=== PATIENT | male | born 1980 | race Caucasian/White ===

== ENCOUNTER 2025-04-14 21:37 | Inpatient (IN) | payer OTHER, SELFPAY ==
[2025-04-14 21:37] VITALS: BP 123/75; PULSE 75; RESP 14; TEMP 37.3; O2SAT 99; BMI 28.4
--- NOTE | 2025-04-14 22:17 | CT_ITS ---
EXAM: CT scan of the right upper extremity with and without contrast. CLINICAL HISTORY: Wound in the arm. COMPARISON: None. TECHNIQUE: Axial CT images before and after intravenous administration of contrast. Contrast: 100 cc of Isovue 370. DLP: 2410. CTDI: 29.46 FINDINGS: Diffuse soft tissue thickening and inflammatory edema of the distal aspect of the arm extending to the forearm, probably cellulitis. No fluid collection or drainable abscess formation is seen. No CT evidence of gas-forming infection or osteomyelitis. Multiple enlarged right axillary lymph nodes are noted with the largest measuring 1.4 cm, probably reactive. CT/Extremity Upper W/WO Contrast IMPRESSION: Findings are suggestive of cellulitis. No fluid collection or drainable abscess formation. Reading [facility] [address]
--- NOTE | 2025-04-14 22:31 | EDS_ITS ---
HPI History of Present Illness Chief Complaint: Rash Narrative Narrative: Chief complaint and HPI: Right upper extremity injury/infection and drug rash. 45-year-old male with no significant past medical history presents for evaluation of right upper extremity injury/infection and drug rash. Patient states approximately 3 weeks ago he had a puncture wound to his right forearm from a industrial hay rake. States he was seen at [facility]. Declined tetanus. Was given 1 dose of Zosyn and discharged home on Augmentin. Patient did not take the antibiotics for 2 weeks. He started developing a wound so he started his 10-day course of antibiotics. Finished last dose on Friday. Over the past 2 days has developed a red pruritic rash on his body. Followed up with Anamaria Ortiz he works at [employer] [facility]. Concern for drug rash as well as right upper extremity infection. Sent to the emergency department. Patient denies any fever, chills, shortness of breath, chest pain, nausea, vomiting. Endorses minimal pain in the right forearm. Endorses increased swell ing, warmth, erythema to the right upper extremity. Review of systems: See HPI Medications: As listed on the chart Allergies: As listed on the chart PFSH: Per chart Vital signs: As listed on the chart. Reviewed. Physical exam: Gen: A&O x3, NAD Head: Normocephalic, atraumatic Eyes: No sclera icterus, conjunctiva clear ENT: Moist mucous membranes Neck: Trachea midline CV: RRR, no murmurs Resp: Lungs CTA BL, no w/r/c Musc: Full ROM, no deformity, right upper extremity is swollen from the mid humerus to the fingers compared to the left, arm is erythematous/warm, mildly tender to palpation, he has a wound that is around the previous puncture sites, radial pulse +2, good capillary refill, sensation intact Skin: Warm, erythematous rash diffusely on the body including the bilateral arms, chest, back, neck, ears-consistent with likely drug rash Neuro: Alert, oriented, grossly intact, sensation intact Psych: Cooperative, appropriate mood and affect [facility] Medical History Iron deficiency anemia Normal cardiac stress test Home Medications ?Medication ?Instructions ?Recorded ?Last Taken ?Type NK 04/14/25 Unknown History Allergy/AdvReac Type Severity Reaction Status Date / Time amoxicillin (From Augmentin) Allergy Severe rash and Verified 04/14/25 21:38 hives clavulanic acid (From Allergy Severe rash and Verified 04/14/25 21:38 Augmentin) hives Family History (Updated 04/15/25 @ 02:[address] Kimberly Cruz MD) Grandfather Heart disease Grandmother Heart disease Mother Diabetes Father Chronic hypotension Surgical History No history of previous surgery Social History (Updated 04/15/25 @ 02:[address] Kimberly Cruz MD) household members: spouse Smoking Status: Never smoker alcohol intake: never substance use type: does not use EXAM Physical Exam Const Vital Signs: 04/14/25 21:37 04/14/25 22:47 04/14/25 22:50 Temperature 99.2 F H 98.5 F Temperature Source Temporal Oral Pulse Rate 75 63 69 Respiratory Rate 14 13 14 Blood Pressure 123/75 H 111/80 Blood Pressure Mean 91 90 Pulse Ox 99 97 98 Oxygen Delivery Method Room Air Room Air Room Air 04/14/25 23:00 04/15/25 00:00 04/15/25 00:00 Temperature 98.2 F 98.2 F Temperature Source Oral Oral Pulse Rate 67 67 70 Respiratory Rate 14 12 14 Blood Pressure 116/73 116/73 116/71 Blood Pressure Mean 87 87 86 Pulse Ox 99 99 100 Oxygen Delivery Method Room Air Room Air 04/15/25 01:00 Temperature 98 F Temperature Source Oral Pulse Rate 70 Respiratory Rate 14 Blood Pressure 132/77 H Blood Pressure Mean 95 Pulse Ox 99 Oxygen Delivery Method Room Air MDM MDM MDM Narrative Medical decision making narrative: 45-year-old male with no significant past medical history presents for evaluation of right upper extremity injury/infection and drug rash. Patient states approximately 3 weeks ago he had a puncture wound to his right forearm from a industrial hay rake. States he was seen at [facility]. Declined tetanus. Was given 1 dose of Zosyn and discharged home on Augmentin. Patient did not take the antibiotics for 2 weeks. He started developing a wound so he started his 10-day course of antibiotics. Finished last dose on Friday. Over the past 2 days has developed a red pruritic rash on his body as well as increased pain, swelling, erythema to the right upper extremity followed up with Anamaria Ortiz he works at [employer] [facility] [employer] [facility]. Concern for drug rash as well as right upper extremity infection. See physical exam findings. Differential diagnosis includes but is not limited to drug rash, cellulitis, upper extremity abscess, DVT, osteomyelitis. NS bolus and Tylenol ordered. Infectious workup ordered including CT of the right upper extremity. I do not have ultrasound available to assess for DVT. CBC without leukocytosis or anemia. Platelets unremarkable. BMP unremarkable. ESR unremarkable. CRP elevated at 9.79. CT of the upper extremity shows findings suggestive of cellulitis. No fluid collection or drainable abscess. No gas-forming infection or osteomyelitis. Patient does have multiple enlarged right axillary lymph nodes. Patient will warrant admission for IV antibiotics given his failed outpatient right upper extremity cellulitis. Given his drug rash to Augmentin, vancomycin and ciprofloxacin ordered. Patient was discussed with the hospitalist. Accepted admission. Patient family updated all results and the plan. Impression: 1. Right upper extremity cellulitis 2. History of puncture wound to the right forearm 3 weeks ago with [employer] Lab Data Labs: Laboratory Results - last 24 hr 04/14/25 04/14/25 00:00 22:45 WBC 9.2 RBC 4.71 Hgb 14.6 Hct 40.8 MCV 86.6 MCH 31.0 MCHC 35.8 RDW Std Deviation 40.1 RDW Coeff of [place] 13.1 Plt Count 289 MPV 10.1 Immature Gran % (Auto) 0.200 Neut % (Auto) 62.9 Lymph % (Auto) 24.5 [place] % (Auto) 7.1 Eos % (Auto) 5.2 H Baso % (Auto) 0.1 Absolute Neuts (auto) 5.8 Absolute Lymphs (auto) 2.25 Nucleated RBC % 0 ESR 4 Sodium 138 Cancelled Potassium 4.0 Cancelled Chloride 106 Cancelled Carbon Dioxide 22.8 Cancelled Anion Gap 9 Cancelled BUN 15 Cancelled Creatinine 1.06 Cancelled Estim Creat Clear Calc 111.38 Cancelled Est GFR (MDRD) Non-Af 88 Cancelled BUN/Creatinine Ratio 13.8 Cancelled Glucose 114 H Cancelled Calcium 8.4 Cancelled C-React Prot Ext Range 9.79 H Cancelled Radiography Diagnostic Testing: Clinical Impression(s) from Imaging Studies Upper Extremity CT 04/14/25 22:17 IMPRESSION: Findings are suggestive of cellulitis. No fluid collection or drainable abscess formation. Reading Location: [facility] Discharge Plan Disposition Disposition: Acute Care Hospital [facility] Discharge Date/Time: 04/15/25 02:25
[2025-04-14 22:47] VITALS: BP 111/80; PULSE 63; RESP 13; TEMP 36.9; O2SAT 97
[2025-04-14] MEDS: 0.9% Normal Saline (1000mL) 1,000 ML 1000 ML IV (22:47)
[2025-04-14 22:50] VITALS: PULSE 69; RESP 14; O2SAT 98
[2025-04-14 23:00] VITALS: BP 116/73; PULSE 67; RESP 14; TEMP 36.8; O2SAT 99
[2025-04-14 23:07] LABS: Absolute Lymphocyte Count 2.25 X10^3/uL (0.83-4.51); Absolute Neutrophil Count 5.8 X10^3/uL (2.0-7.7); Basophil# 0.01 X10^3/uL; Basophil% 0.1 % (0-1); Eosinophil# 0.48 X10^3/uL; Eosinophils% 5.2 % (0-5); Hematocrit 40.8 % (40-54); Hemoglobin 14.6 g/dL (13.0-16.5); Lymphocyte # 2.25 X10^3/ul (0.83-4.51); Lymphocyte % 24.5 % (19-41); Mean Corp Hgb Conc 35.8 g/dL (32-36); Mean Corpuscular Volume 86.6 fL (80-94); Mean Platelet Vol. 10.1 fl (6.2-12.0); Monocyte# 0.65 X10^3/uL; Monocyte% 7.1 % (0-10); NRBC Flagged by Analyzer 0 % (0-5); Neutrophil # 5.76 X10^3/uL (2.7-7.7); Neutrophil % 62.9 % (47-70); Platelet Count 289 K/mm3 (150-450); RBC Distribution Width CV 13.1 % (11.6-14.6); RBC Distribution Width SD 40.1 fl (35.1-43.9); Red Blood Count 4.71 M/mm3 (4.6-6.2); White Blood Count 9.2 K/mm3 (4.4-11.0)
[2025-04-14 23:18] LABS: Erythrocyte Sedimentation Rate 4 mm/hr (0-20)
[2025-04-15] VITALS (7 sets, daily range): BP systolic 116–132; BP diastolic 66–77; PULSE 66–75; RESP 12–18; TEMP 36.6–37.1; O2SAT 97–100; BMI 28.0
[2025-04-15 00:57] LABS: Anion Gap 9 (5-15); BUN 15 mg/dL (4-19); BUN/Creat Ratio 13.8 RATIO (10-20); CRP 9.79 mg/L (0.0-3.0); Calcium,Total 8.4 mg/dL (7.6-11.0); Carbon Dioxide 22.8 mmol/L (21.0-32.0); Chloride 106 mmol/L (98-108); Creatinine, Serum 1.06 mg/dL (0.70-1.20); EST Glomerular Filtration Rate 88 (>60); Estimated Creatinine Clearance 111.38 ml/min (50-250); Glucose 114 mg/dL (70-99); Sodium Level 138 mmol/L (133-145)
[2025-04-15] MEDS: Ciprofloxacin 400 MG/200 ML BAG 200 MG IV (01:05)
--- NOTE | 2025-04-15 01:12 | HP.PCM.HOS_ITS ---
HPI - General General Date of Admission: 04/15/25 Date of Service: 04/15/25 Chief Complaint: RUE pain, s/p recent trauma w/ infection, redness, edema, recent Augmentin drug reaction. HPI Narrative The patient is a 45 y/o M w/ PMHx: Fe deficiency anemia history not routinely taking Fe supplementation otherwise healthy who presents to the [facility] ED on 04/15/25 with history of trauma to the right arm from a metal piece of farm equipment approximately 3 weeks prior with immediate evaluation in the emergency room with IV Zosyn antibiotic therapy at that time, highly suggested tetanus shot however patient and spouse declined vaccination in addition to prescription at discharge with Augmentin with high concern for infectious risk but they had deferred taking the antibiotic at that time given he had been administered IV antibiotics in the ED however approximately 2 weeks later he had significant periwound erythema and swelling prompting him to start the Augmentin which he took 10 days worth of and starting 2 days previous to completion of this he had onset of significant hives and swelling to bilateral upper extremity, neck, face and behind the neck with pruritus associated however he also notes over the last 24 hours he had increased swelling to the right upper extremity focally with periwound erythema worsening and discomfort/aching to the right upper extremity rating it 2-4 out of 10 in severity at its worst prompting eventual ED evaluation. He does report significant itching with the rash/hives. He denies any other recent exposures to this region. He denies any other new medications aside from the Augmentin antibiotic therapy. Workup in the ED included T98.5, heart rate 63, BP 111/80, respiratory rate 13, 97% on room air with most recent repeat evaluation T98.2, heart rate 70, BP 116/71, respiratory rate 14, 100% on room air, CBC with WC 9.2, P1 14.6, platelet 289 without marked shift, ESR 4, BMP with BUN/creatinine 15/1.06, GFR 88, glucose 114, CRP 9.97, right upper extremity CT with findings suggestive of cellulitis with diffuse soft tissue thickening and inflammatory edema of the distal aspect of the arm extending to the forearm with no fluid collection or abscess formation evident. In the ED patient ministered 1 L normal saline, Tylenol 1000 mg p.o. x 1, ciprofloxacin 400 mg IV x 1, vancomycin 2000 mg IV x 1. [facility] Medical History Iron deficiency anemia Normal cardiac stress test Home Medications ?Medication ?Instructions ?Recorded ?Last Taken ?Type NK 04/14/25 Unknown History Allergy/AdvReac Type Severity Reaction Status Date / Time amoxicillin (From Augmentin) Allergy Severe rash and Verified 04/14/25 21:38 hives clavulanic acid (From Allergy Severe rash and Verified 04/14/25 21:38 Augmentin) hives Family History (Updated 04/15/25 @ 02:[address] Kimberly Cruz MD) Grandfather Heart disease Grandmother Heart disease Mother Diabetes Father Chronic hypotension Surgical History No history of previous surgery Social History (Updated 04/15/25 @ 02:[address] Kimberly Cruz MD) household members: spouse Smoking Status: Never smoker alcohol intake: never substance use type: does not use ROS ROS Narrative Admission Review of Systems: CONSTITUTIONAL: No weight loss, fever, chills, + weakness or fatigue. HEENT: Eyes: No visual loss, blurred vision, double vision or yellow sclerae. Ears, Nose, Throat: No hearing loss, sneezing, congestion, runny nose or sore throat. SKIN: + Significant bilateral upper extremity, upper throat/facial/posterior neck and upper back hives and erythematous rash following recent antibiotic therapy in addition to right upper extremity forearm recent wounds with metal farm equipment with periwound erythema, edema to the right upper extremity and tenderness to palpation. CARDIOVASCULAR: No chest pain, chest pressure or chest discomfort, palpitations, edema, orthopnea, syncopal events. RESPIRATORY: No shortness of breath, cough or sputum, wheezing, hemoptysis. GASTROINTESTINAL: + Recent mildly decreased appetite. No nausea, vomiting or diarrhea, abdominal pain, melena, BRBPR. GENITOURINARY: No dysuria, frequency, urgency or retention. NEUROLOGICAL: No headache, dizziness, syncope, paralysis, ataxia, numbness or tingling in the extremities, focal weakness, change in bowel or bladder control, seizure. MUSCULOSKELETAL: + muscle, back pain, joint pain or stiffness. HEMATOLOGIC: History of chronic iron deficiency anemia. No marked easy history of+ bleeding or bruising. LYMPHATICS: No enlarged nodes. No history of splenectomy. PSYCHIATRIC: No history of depression or anxiety. ENDOCRINOLOGIC: No reports of sweating, cold or heat intolerance. No polyuria or polydipsia. ALLERGIES: + Recent onset as noted of erythema/rash and hives with Augmentin antibiotic therapy. Vital Signs Vital Signs Vital Signs: 04/14/25 21:37 04/14/25 22:47 04/14/25 22:50 Temperature 99.2 F H 98.5 F Temperature Source Temporal Oral Pulse Rate 75 63 69 Respiratory Rate 14 13 14 Blood Pressure 123/75 H 111/80 Blood Pressure Mean 91 90 Pulse Ox 99 97 98 Oxygen Delivery Method Room Air Room Air Room Air 04/14/25 23:00 04/15/25 00:00 04/15/25 00:00 Temperature 98.2 F 98.2 F Temperature Source Oral Oral Pulse Rate 67 67 70 Respiratory Rate 14 12 14 Blood Pressure 116/73 116/73 116/71 Blood Pressure Mean 87 87 86 Pulse Ox 99 99 100 Oxygen Delivery Method Room Air Room Air 04/15/25 01:00 Temperature 98 F Temperature Source Oral Pulse Rate 70 Respiratory Rate 14 Blood Pressure 132/77 H Blood Pressure Mean 95 Pulse Ox 99 Oxygen Delivery Method Room Air Weight Weight: 221 lb 5.506 oz Body Mass Index (BMI) 28.4 Physical Exam Narrative Physical Examination: General: Awake, alert, oriented x 3 and cooperative, seated upright in the ED bed, notes very mild discomfort to the right upper extremity but does report significant itching with the hives/rash. Skin: Normal color, normal turgor, no icterus, no cyanosis except for significant upper extremity, throat, face, posterior neck and upper back hives as well as erythematous rash, right upper extremity forearm status post recent trauma with metal forearm equipment with periwound erythema, increased swelling to the right upper extremity, indurated region with no focal ballotable area. HEENT: AT/NC, EOMI, PERRLA, moderately dry MM, no carotid bruits or JVD noted. Lungs: Mildly diminished, greater bases, proper effort, no rales, ronchi or wheezing. Heart: Regular rate and rhythm; no gallop, rub audible. Abdomen: Soft, overweight, NTTP, ND, mildly hyperactive BS, no HSM. Extremities: No cyanosis, no clubbing, see skin. Neurological: Patient awake, alert, oriented as noted, cognitive function intact; pupils equally reactive to light and accommodation, cranial nerves grossly normal, moving all 4 extremities although somewhat limited right upper extremity movement given discomfort and acute presentation with infection to the right upper extremity, no focal deficits, strength moderately globally decreased. Psychiatric: Affect appears fatigued otherwise normal, no acute evidence of depressive or anxiety feelings. Results Lab / Micro Data 04/14/25 22:45 04/14/25 00:00 Labs: Laboratory Results - last 24 hr 04/14/25 00:00: Sodium 138, Potassium 4.0, Chloride 106, Carbon Dioxide 22.8, Anion Gap 9, BUN 15, Creatinine 1.06, Estim Creat Clear Calc 111.38, Est GFR (MDRD) Non-Af 88, BUN/Creatinine Ratio 13.8, Glucose 114 H, Calcium 8.4, C-React Prot Ext Range 9.79 H 04/14/25 22:45: WBC 9.2, RBC 4.71, Hgb 14.6, Hct 40.8, MCV 86.6, MCH 31.0, MCHC 35.8, RDW Std Deviation 40.1, RDW Coeff of [place] 13.1, Plt Count 289, MPV 10.1, Immature Gran % (Auto) 0.200, Neut % (Auto) 62.9, Lymph % (Auto) 24.5, [place] % (Auto) 7.1, Eos % (Auto) 5.2 H, Baso % (Auto) 0.1, Absolute Neuts (auto) 5.8, Absolute Lymphs (auto) 2.25, Nucleated RBC % 0, ESR 4, Sodium Cancelled, Potassium Cancelled, Chloride Cancelled, Carbon Dioxide Cancelled, Anion Gap Cancelled, BUN Cancelled, Creatinine Cancelled, Estim Creat Clear Calc Cancelled, Est GFR (MDRD) Non-Af Cancelled, BUN/Creatinine Ratio Cancelled, Glucose Cancelled, Calcium Cancelled, C-React Prot Ext Range Cancelled Imaging Radiology Impression Upper Extremity CT 04/14/25 22:17 IMPRESSION: Findings are suggestive of cellulitis. No fluid collection or drainable abscess formation. Reading [facility] Assessment & Plan Assessment/Plan (1) Infected wound: PLAN: Plan The patient is a 45 y/o M w/ PMHx: Fe deficiency anemia history not routinely taking Fe supplementation otherwise healthy who presents to the [facility] ED on 04/15/25 with history of trauma to the right arm from a metal piece of farm equipment approximately 3 weeks prior with immediate evaluation in the emergency room with IV Zosyn antibiotic therapy at that time, highly suggested tetanus shot however patient and spouse declined vaccination in addition to prescription at discharge with Augmentin with high concern for infectious risk but they had deferred taking the antibiotic at that time given he had been administered IV antibiotics in the ED however approximately 2 weeks later he had significant periwound erythema and swelling prompting him to start the Augmentin which he took 10 days worth of and starting 2 days previous to completion of this he had onset of significant hives and swelling to bilateral upper extremity, neck, face and behind the neck with pruritus associated however he also notes over the last 24 hours he had increased swelling to the right upper extremity focally with periwound erythema worsening and discomfort/aching. #1. Right upper extremity cellulitis (failed outpatient abx therapy) status post trauma with farm equipment with periwound increasing erythema, right upper extremity swelling and discomfort with concurrent antibiotic allergic reaction as noted #2: Will admit to medical surgical floor, maintain on IV vancomycin and Levaquin given recent allergic reaction to Augmentin, currently there is no discharge from the wound itself and CT with no obvious abscess but will continue closely monitor, plan repeat CBC in AM, continue affected extremity elevation above heart when seated and in bed, monitor erythema outline with VS checks, right upper extremity duplex ultrasound requested and in the interim until obtained will place on therapeutic Lovenox. Will have as needed pain regimen/antiemetic regimen. #2. Antibiotic allergic reaction: Discussed with patient and spouse at length and given infectious presentation currently will defer any usage of steroids at this time, Augmentin is now listed as an allergy, will have hydroxyzine for itching per discussion with patient and spouse. #3. Questionable Chronic Kidney Disease Stage II per GFR trending versus renal insufficiency: Admission BUN/Cr 15/1.06, GFR 88,, baseline renal function unknown, repeat BMP in AM to further elucidate chronicity. #4. Patient reported history of chronic iron deficiency anemia: Admission CBC with hemoglobin 14.6, MCV 86.6, notes he only takes iron supplementation [id number] when he is feeling fatigued and it is unclear if this was ever a formal diagnosis, will continue to trend CBC. #5. DVT prophylaxis: Will place on therapeutic Lovenox pending right upper extremity duplex ultrasound and if it is negative de-escalate to chemoprophylactic dosing only. Charges/Coding Visit Charges Inpatient E&M: 58543 Subs Hosp L3
--- NOTE | 2025-04-15 01:16 | VDUE_ITS ---
Reason For Study Reason For Study: RUE PAIN Right Proximal Left Proximal Right jugular vein is spontaneous, widely patent, Left subclavian vein is spontaneous, widely patent, phasic, with no intraluminal echogenicity noted. phasic, with no intraluminal echogenicity noted. Right subclavian vein is spontaneous, widely patent, phasic, with no intraluminal echogenicity noted. Right Lower Arm Right radial vein is compressible. Right ulnar vein is compressible. Right Arm Right axillary vein is spontaneous, patent, phasic, competent, compressible and demonstrates augmentation. Right brachial vein is compressible. Right cephalic vein is compressible. Right basilic vein is compressible. Patient Safety PRELIMINARY sent to [facility]. VL/Venous Duplex US, Unilateral Interpretation Summary Deep veins of the right upper extremity are patent and compressible segmentally . There is no evidence of deep vein thrombosis. The superficial veins of the right upper extremity, the basilic and cephalic veins, are patent and compressible. There is no evidence of right upper extremity superficial thrombo phlebitis involving the veins imaged. The left subclavian vein is patent. Ordering Physician: Kimberly Cruz Referring Physician: Anamaria Ortiz Performed By: Cori Wilkes, DORIE, RVT ???
[2025-04-15] MEDS: Vancomycin HCl 2,000 MG in 0.9% Normal Saline (500mL Bag) 500 ML 250 MG IV (03:16)
[2025-04-15] MEDS: 0.9% Normal Saline (1000mL) 1,000 ML 100 ML IV (03:29)
[2025-04-15] MEDS: Enoxaparin 100 MG/ML Syringe SC ×2 (03:49→09:12)
--- NOTE | 2025-04-15 03:52 | PCM.RX.CS ---
Consult Antibiotic Management Pharmacy has been consulted to manage selected antibiotic: Vancomycin Type of Intervention Type of Consult: New start Labs Labs: Sodium Cancelled 04/14/25 22:45 Potassium Cancelled 04/14/25 22:45 Chloride Cancelled 04/14/25 22:45 Carbon Dioxide Cancelled 04/14/25 22:45 Anion Gap Cancelled 04/14/25 22:45 BUN Cancelled 04/14/25 22:45 Creatinine Cancelled 04/14/25 22:45 Est GFR (MDRD) Non-Af Cancelled 04/14/25 22:45 BUN/Creatinine Ratio Cancelled 04/14/25 22:45 Glucose Cancelled 04/14/25 22:45 Dosing Weight Weight used for dosin kg Estimated Creatinine Clearance Estimated Creatinine Clearance: 110 Goal Trough Goal Trough: 15-20 mcg/mL Pharmacy Plan for Drug Dosing Pharmacy Plan for Drug Dosing: Pharmacy Service will continue to monitor and adjust dosing as required. ER DOSE 2GM 04/15 @ 0316. START 1250MG Q8H AND DRAW TROUGH PRIOR TO 4TH DOSE Follow-Up Labs Follow-Up Labs: Trough: Vancomycin Date/Time Labs Ordered Labs to be done on [date and time ordered]: 04/16 @ 0300
--- NOTE | 2025-04-15 08:39 | PCM.PN.HOSP ---
Reason for Visit Reason for Visit: Diagnoses Local infection of the skin and subcutaneous tissue, unspecified (04/15/25) Other injury of unspecified body region, initial encounter (04/15/25) Subjective Subjective Feels the diffuse rash that he has is overall proving. Still with edema of his right upper extremity. About 3 weeks ago he had the tong of a pitchfork go straight through his arm puncture to the other side. Fortunately missed all major vessels and nerves. States that he went back to work and was doing well. Had been on Augmentin for cellulitis which she had completed and then the next day developed a diffuse rash. Objective Data Objective Data Vital Signs: Vital Signs Temp Pulse Resp BP Pulse Ox O2 Del Method 36.7 C 75 15 123/66 H 97 Room Air 04/15/25 08:23 04/15/25 08:23 04/15/25 08:23 04/15/25 08:23 04/15/25 08:23 04/15/25 08:25 Oxygen Delivery Method Room Air Weight: 99.1 kg Body Mass Index (BMI) 28.0 Intake & Output: Intake and Output for Last 24 Hours 04/13/25 04/14/25 04/15/25 23:59 23:59 23:59 Intake Total 1450 / 1450 Balance 1450 / 1450 Lab / Micro Data 04/15/25 10:20 04/15/25 10:20 Labs: Laboratory Results - last 24 hr 04/14/25 00:00: Sodium 138, Potassium 4.0, Chloride 106, Carbon Dioxide 22.8, Anion Gap 9, BUN 15, Creatinine 1.06, Estim Creat Clear Calc 111.38, Est GFR (MDRD) Non-Af 88, BUN/Creatinine Ratio 13.8, Glucose 114 H, Calcium 8.4, C-React Prot Ext Range 9.79 H 04/14/25 22:45: WBC 9.2, RBC 4.71, Hgb 14.6, Hct 40.8, MCV 86.6, MCH 31.0, MCHC 35.8, RDW Std Deviation 40.1, RDW Coeff of [place] 13.1, Plt Count 289, MPV 10.1, Immature Gran % (Auto) 0.200, Neut % (Auto) 62.9, Lymph % (Auto) 24.5, [place] % (Auto) 7.1, Eos % (Auto) 5.2 H, Baso % (Auto) 0.1, Absolute Neuts (auto) 5.8, Absolute Lymphs (auto) 2.25, Nucleated RBC % 0, ESR 4, Sodium Cancelled, Potassium Cancelled, Chloride Cancelled, Carbon Dioxide Cancelled, Anion Gap Cancelled, BUN Cancelled, Creatinine Cancelled, Estim Creat Clear Calc Cancelled, Est GFR (MDRD) Non-Af Cancelled, BUN/Creatinine Ratio Cancelled, Glucose Cancelled, Calcium Cancelled, C-React Prot Ext Range Cancelled Radiography Diagnostic Testing: Radiology Impression Upper Extremity CT 04/14/25 22:17 IMPRESSION: Findings are suggestive of cellulitis. No fluid collection or drainable abscess formation. Reading Location: [place] [id number] Physical Exam Const alert and no apparent distress HEENT head/scalp atraumatic and moist oral mucous membranes Skin Skin Narrative: Diffuse maculopapular rash on upper extremities and torso. Does have a lesion on his right anterior arm that has been scabbed over. Noted edema in right upper extremity. Neuro moves all extremities Sensorium / Orientation: awake and alert Psych affect normal Assessment & Plan Assessment/Plan (1) Infected wound: PLAN: Right upper extremity cellulitis. Cannot rule out severe rhus dermatitis. But with the patient's severe injury that he has sustained 3 weeks ago where the tongue of the pitchfork went directly through his arm from 1 end to the other I would continue to treat him as though he does have an infectious dermatitis. Additionally I would avoid steroids at this point in time because of the concern for infection and the fact that his drug rash is overall improving. His spouse was present and expressed reservations about the Levaquin. Will try to reassure her that Levaquin is used frequently and that he would be monitored but they would wish to avoid that for now. Given his obvious allergy to penicillins which are clearly severe I would avoid that moving forward and I will have him on aztreonam and vancomycin. I did discuss with him about gram-positive organisms which vancomycin would cover and strongly encouraged its use which they are both in agreement to now. (2) Drug rash: PLAN: Patient was taking Augmentin and when this rash happened. I doubt it is related with the clavulanic acid but more from the amoxicillin. Penicillin would be an allergy and he is instructed to avoid all penicillins moving forward. Though I am concerned because I did see some pictures that he had a wound on his anterior arm and had some just serous seepage which looked from the picture to be Rhus dermatitis. And it is possible that having there is dermatitis as well as a drug rash may have made his overall reaction worse. But once again avoiding steroids right now because of the concern for infection and overall appears to be improved. PLAN: Plan VTE prophylaxis with enoxaparin. Disposition: Monitor the patient overnight. If he is improving, hopefully he could be discharged in next day or 2. Charges/Coding Visit Charges Inpatient E&M: 90590 Subs Hosp L2
[2025-04-15] MEDS: levoFLOXacin IV 750 MG/150 ML BAG 100 MG IV (09:08)
--- NOTE | 2025-04-15 09:57 | WOUNDNOTE ---
wound photo: right arm
--- NOTE | 2025-04-15 09:58 | WOUNDNOTE ---
wound photo: right arm
[2025-04-15 10:34] LABS: Absolute Lymphocyte Count 1.64 X10^3/uL (0.83-4.51); Absolute Neutrophil Count 7.5 X10^3/uL (2.0-7.7); Basophil# 0.02 X10^3/uL; Basophil% 0.2 % (0-1); Eosinophil# 0.46 X10^3/uL; Eosinophils% 4.5 % (0-5); Hematocrit 41.7 % (40-54); Hemoglobin 14.4 g/dL (13.0-16.5); Lymphocyte # 1.64 X10^3/ul (0.83-4.51); Lymphocyte % 16.1 % (19-41); Mean Corp Hgb Conc 34.5 g/dL (32-36); Mean Corpuscular Hgb 30.4 pg (27.0-32.0); Mean Corpuscular Volume 88.2 fL (80-94); Mean Platelet Vol. 9.3 fl (6.2-12.0); Monocyte% 4.9 % (0-10); NRBC Flagged by Analyzer 0 % (0-5); Neutrophil # 7.52 X10^3/uL (2.7-7.7); Neutrophil % 74.1 % (47-70); Platelet Count 219 K/mm3 (150-450); RBC Distribution Width CV 12.4 % (11.6-14.6); RBC Distribution Width SD 40.4 fl (35.1-43.9); Red Blood Count 4.73 M/mm3 (4.6-6.2); White Blood Count 10.2 K/mm3 (4.4-11.0)
[2025-04-15 11:42] LABS: ALB/GLOB Ratio 1.3 RATIO (0.9-2.4); AST(SGOT) 53 U/L (<=37); Alanine Aminotransfer ALT/SGPT 112 U/L (<=46); Albumin, Serum 3.7 g/dL (3.5-5.0); Alkaline Phosphatase 54 U/L (40-129); Anion Gap 11 (5-15); BUN 11 mg/dL (4-19); BUN/Creat Ratio 11.7 RATIO (10-20); Calcium,Total 8.8 mg/dL (7.6-11.0); Carbon Dioxide 22.3 mmol/L (21.0-32.0); Chloride 106 mmol/L (98-108); Creatinine, Serum 0.93 mg/dL (0.70-1.20); EST Glomerular Filtration Rate 103 (>60); Estimated Creatinine Clearance 126.21 ml/min (50-250); Globulin 2.7 g/dL (2.2-4.2); Glucose 130 mg/dL (70-99); Protein, Total 6.4 g/dL (5.9-8.4); Sodium Level 139 mmol/L (133-145); Total Bilirubin 0.38 mg/dL (0.00-1.30)
[2025-04-15] MEDS: Vancomycin HCl 1,250 MG in 0.9% Normal Saline (250mL Bag) 250 ML 167 MG IV ×2 (11:56→19:20)
[2025-04-15] MEDS: Aztreonam 1 GM 1 GM in 0.9% Normal Saline (50mL MB+) 50 ML IV ×2 (14:10→23:25)
--- NOTE | 2025-04-15 16:16 | CASEMGMT ---
BRENT DNA Chart Review: DX:KERLINE Cellulitis Lace: 1 6 Click: 24 Medical record reviewed and patient evaluated for identification of discharge planning needs. Based on this review, patient does not currently demonstrate a need for discharge planning. CM remains available to assist with discharge planning needs as identified or requested.?
[2025-04-16 03:46] VITALS: BMI 28.0
[2025-04-16 04:27] LABS: Vancomycin, Trough Level 13.2 ug/mL (5.0-15.0)
[2025-04-16] MEDS: Aztreonam 1 GM 1 GM in 0.9% Normal Saline (50mL MB+) 50 ML IV ×2 (05:12→15:34)
[2025-04-16 05:50] VITALS: BP 100/58; PULSE 66; RESP 16; TEMP 36.1; O2SAT 97
--- NOTE | 2025-04-16 06:20 | PCM.RX.CS ---
Consult Antibiotic Management Pharmacy has been consulted to manage selected antibiotic: Vancomycin Type of Intervention Type of Consult: Follow-up Labs Labs: Sodium 139 mmol/L (133-145) 04/15/25 10:20 Potassium 4.0 mmol/L (3.3-5.1) 04/15/25 10:20 Chloride 106 mmol/L (98-108) 04/15/25 10:20 Carbon Dioxide 22.3 mmol/L (21.0-32.0) 04/15/25 10:20 Anion Gap 11 (5-15) 04/15/25 10:20 BUN 11 mg/dL (4-19) 04/15/25 10:20 Creatinine 0.93 mg/dL (0.70-1.20) 04/15/25 10:20 Est GFR (MDRD) Non-Af 103 (>60) 04/15/25 10:20 BUN/Creatinine Ratio 11.7 RATIO (10-20) 04/15/25 10:20 Glucose 130 mg/dL (70-99) H 04/15/25 10:20 Vancomycin Trough 13.2 ug/mL (5.0-15.0) 04/16/25 03:29 Goal Trough Goal Trough: 15-20 mcg/mL Pharmacy Plan for Drug Dosing Pharmacy Plan for Drug Dosing: Pharmacy Service will continue to monitor and adjust dosing as required. TROUGH 13.2 @ 8 HOURS. INCREASE TO 1500MG Q8H AND FOLLOW UP TROUGH PRIOR TO 4TH DOSE Follow-Up Labs Follow-Up Labs: Trough: Vancomycin Date/Time Labs Ordered Labs to be done on [date and time ordered]: 04/17 @ 0400
[2025-04-16] MEDS: Vancomycin HCl 1,500 MG in 0.9% Normal Saline (500mL Bag) 500 ML 250 MG IV ×2 (06:24→11:57)
[2025-04-16 07:01] VITALS: O2SAT 93
[2025-04-16 11:04] VITALS: BP 114/74; PULSE 70; RESP 14; TEMP 36.6; O2SAT 98
[2025-04-16] MEDS: 0.9% Saline Lock 10 ML Syringe IV (11:58)
--- NOTE | 2025-04-16 13:30 | DS.PCM_ITS ---
Providers Date of Admission: 04/15/25 Date of Discharge: 04/16/25 Primary Care Physician: Anamaria Ortiz Consultations 04/15/25 07:15 Consult: Onc/Wound/primary health organisation manager Routine Comment: Reason for Consult:: R arm wound Reason For Visit: RUE CELLULITIS, ALLERGIC RXN Diagnosis Discharge Diagnosis (1) Infected wound: Status: Acute Code(s): T14.8XXA - Other injury of unspecified body region, initial encounter; L08.9 - Local infection of the skin and subcutaneous tissue, unspecified (2) Drug rash: Status: Acute Code(s): L27.0 - Generalized skin eruption due to drugs and medicaments taken internally Medications at Discharge Home Medications cefdinir 300 mg capsule 300 mg PO Q12H #20 caps 04/16/25 doxycycline hyclate 100 mg capsule 100 mg PO BID #20 caps 04/16/25 oxycodone 5 mg tablet 5 mg PO Q8H PRN pain 4 days #12 tabs 04/16/25 Hospital Course Operations None Procedures - (Right upper extremity CT/venous Doppler ) Summary of Care Provided Minutes Spent on Discharge: 37 Hospital Course: Mr. Augustin is a 45-year-old white male who presented to the emergency department at [facility] on 04/14/2025 late in the evening due to right upper extremity redness with recent trauma and drug reaction. About 3 weeks prior to presentation he had a industrial hay rake puncture his right upper extremity. He was seen at [facility] and declined tetanus shot at that time but was given 1 dose of Zosyn and discharged with Augmentin. He did not take the antibiotics for 2 weeks but then started developing drainage around the wound and started his 10-day antibiotic course. The dose was finished on Friday prior to presentation but developed a pruritic rash all over his body. He followed up with his primary care physician at the [place] [facility] and she was concern for drug rash as well as a right upper extremity infection and sent the patient to the emergency department. On presentation he had no fever or chills but did complain of some mild right arm pain and swelling. He also felt that the arm was hot in nature. On evaluation he had erythema that extended up to his mid brachial area as well as swelling to this area as well. He also has a diffuse drug rash it seems to be in various stages of healing. The drug rash does make his right upper extremity erythema complicated. He had developed an area of a superficial wound on the dorsum of his right forearm and a small area on the volar surface of his right forearm both of which are not having any significant drainage. Vital signs on presentation showed a temperature of 99.2, heart rate 75, respiratory was 14, blood pressure was 123/75 pulse ox was 99% on room air. CBC was overtly unremarkable without a left shift. Sed rate was normal. Chemistry was unremarkable. CRP was 9.79. Her right upper extremity CT was consistent with cellulitis but no fluid collection or drainable abscesses were noted. Given his symptoms he was admitted to hospital and placed on IV antibiotics. Initially with Levaquin and vancomycin. Family declined Levaquin as they were concerned about the black box warning and he was transitioned to aztreonam and vancomycin. His rash is slowly improving. The area of erythema and swelling both seem to be improving. At this time, I did discuss pseudomonal coverage at the time of discharge as quinolones are really her only option for outpatient oral Pseudomonas coverage and given the fact we do not know exactly what microbes are treating as no wound culture has been able to be obtained. They preferred to be continue antibiotic coverage without pseudomonal coverage and will monitor closely for any signs of recurrence given their concern with fluoroquinolone use. At this time I have chosen doxycycline to cover MRSA and Omnicef for the rest of coverage. I have recommended he have close f/u with his PCP and be seen next week early to mid week. Discharge Diagnoses: R UE Cellulitis Drug Rash Augmentin allergy Transaminitis Eosinophilia-resolved Physical Exam Const alert, oriented x3, no apparent distress, average body habitus, no limitations, healthy appearing and well nourished Constitutional Narrative: Very pleasant, middle-aged, white male, sitting up in bed, right arm elevated, at bedside, does not appear toxic and looks well at this time General Appearance: cooperative, comfortable, well kempt and well developed Exam Limitations: no limitations HEENT normocephalic, head/scalp atraumatic, hearing grossly normal bilaterally and moist oral mucous membranes Eyes conjunctivae normal Eyes Narrative: No scleral icterus Neck supple Neck Narrative: Trachea midline Resp normal respiratory effort, no retractions, no use of accessory muscles and clear to auscultation bilaterally Auscultation: Negative for crackles, rhonchi or wheezes Cardio regular rate, regular rhythm, S1 normal heart sound, S2 normal heart sound, no murmurs, no rub, no gallops and no clicks GI normal to inspection, nondistended, normoactive bowel sounds, soft to palpation and non-tender Extremity Extremity Narrative: Right upper extremity swelling but soft, radial pulse on the right side is within normal limits at 2+ as it is on the left side, no signs of compartment syndrome, blotchy erythematous changes in the right arm are retracting from outlined area, patient does have open areas with no drainage and no signs of abscesses or purulent drainage, patient does have raised areas most predominant on arms but diffusely consistent with rash, no clubbing or cyanosis noted Skin skin turgor normal and no jaundice Skin Narrative: Right upper extremity wounds without drainage Neuro oriented x3, moves all extremities and no focal motor deficits Speech: speech normal Psych affect normal Psych Narrative: Very pleasant, appropriately interactive Weight / BMI Weight Weight: 99 kg Body Mass Index (BMI) 28.0 ABG / Lab / Microbiology Data 04/15/25 10:20 04/15/25 10:20 Laboratory: Laboratory Results - last 24 hr 04/16/25 03:29: Vancomycin Trough 13.2 Radiography Diagnostic Testing: Radiology Impression Venous Doppler Study 04/15/25 01:16 Interpretation Summary Deep veins of the right upper extremity are patent and compressible segmentally. There is no evidence of deep vein thrombosis. The superficial veins of the right upper extremity, the basilic and cephalic veins, are patent and compressible. There is no evidence of right upper extremity superficial thrombophlebitis involving the veins imaged. The left subclavian vein is patent. Ordering Physician: Kimberly Cruz Referring Physician: Anamaria Ortiz Performed By: Cori Wilkes, DORIE, RVT ??? D/C Instructions Discharge Diet: No restrictions Return to work on: 04/18/25 (Please keep arm elevated while not working and wrap open areas if you must work) DC O2, CPAP, BIPAP Needs Home O2 Discharge instructions: No Meaningful Use Info Meaningful Use Meaningful Use Diagnoses (Choose all that apply): None applicable Ischemic Stroke Statin Dosing Therapy Reference: STATIN DOSE THERAPY REFERENCE: * Patients > 75 years receive moderate or high dose statin therapy. * Patients 75 years or YOUNGER should receive HIGH intensity statin dose unless contraindicated. You will be required to document reason for non-treatment if statin daily dose does not meet guidelines. HIGH DOSE STATIN THERAPY DAILY Atorvastatin > than or = to 40 mg Rosuvastatin > than or = to 20 mg Amlodipine + Atorvastatin > than or = to 2.5/40 mg Ezetimibe + Simvastatin 10/80 mg Simvastatin 80mg Discharge Plan Admission Admit Date/Time: 04/15/25 01:12 Primary Reason for Your Visit: Right upper extremity cellulitis Attending Provider: Ina Al Primary Care Provider: Anamaria Ortiz Consulting Providers: Kimberly Cruz; Neville Russell Instructions Additional Instructions / Restrictions: 1. Please complete the full course of antibiotics as instructed and please take with a full glass of water and sit upright for about 30 minutes after antibiotic usage. 2. Please keep open area covered while you are working 3. You could consider getting triple antibiotic cream and placed on open areas while they were healing in addition to oral antibiotics - Do not use the neomycin this could make the area look worse due to hypersensitivity reaction which is common with this drug 4. Keep area elevated while sitting 5. Please call your primary care physician and be seen mid to early next week Discharge Orders/Prescriptions Prescriptions: New doxycycline hyclate 100 mg capsule 100 mg PO BID Qty: 20 0RF cefdinir 300 mg capsule 300 mg PO Q12H Qty: 20 0RF oxycodone 5 mg tablet 5 mg PO Q8H PRN (Reason: pain) 4 Days Qty: 12 0RF Referrals / Follow Up: Anamaria Ortiz [Primary Care Provider] - In 1 Week (Please call and be evaluated midweek or earlier if not improving) Disposition Disposition (needs filled in before D/C Order can be placed): Home, Self Care Charges/Coding Visit Charges Inpatient E&M: 71429 Disch Hosp >30min
== END 2025-04-16 16:45 | disposition home or self-care (01) | DRG 603 ==
LOC: ED 22:26 → PCU 04-15 01:28
PROVIDERS: Admitting Provider Family Medicine; Emergency Provider Surgery; Referring Provider Surgery; Visit Provider Internal Medicine
DX: L03.113 Cellulitis of right upper limb (principal); D72.12 Drug rash with eosinophilia and systemic symptoms syndrome; L27.0 Generalized skin eruption due to drugs and medicaments taken internally; T36.0X5A Adverse effect of penicillins, initial encounter; R74.01 Elevation of levels of liver transaminase levels
CPT/HCPCS: 36415; 73202; 80048; 80053; 80202; 85025; 85652; 86140; 87040; 93971; 97802; 99284; Q9967; A4216; J0744